=== PATIENT | female | born 1980 | race Caucasian/White ===

== ENCOUNTER 2016-12-21 19:45 | Emergency (ER) | payer OTHER ==
[2016-12-21 19:58] VITALS: BMI 26.6
[2016-12-21 21:35] LABS: URINE APPEARANCE CLEAR; URINE BILIRUBIN NEGATIVE (NEGATIVE); URINE BLOOD NEGATIVE (NEGATIVE); URINE COLOR LTYELLOW; URINE GLUCOSE (UA) NEGATIVE (NEGATIVE); URINE KETONE NEGATIVE (NEGATIVE); URINE NITRITE NEGATIVE (NEGATIVE); URINE PROTEIN NEGATIVE (NEGATIVE); URINE UROBILINOGEN NEGATIVE E.U./dl (0.2-1.0)
[2016-12-21 21:37] LABS: URINE LEUK ESTERASE 2+ (NEGATIVE)
[2016-12-21 21:38] LABS: URINE HYALINE CAST 2 /lpf; URINE MUCUS RARE; URINE RBC 3 /hpf (0-3); URINE WBC 13 /hpf (3-5)
[2016-12-21] MEDS ORDERED: ACETAMINOPHEN/CAFFEINE/BUTALBITAL 1 TAB PO ONE (22:15)
[2016-12-21] MEDS ORDERED: METOCLOPRAMIDE HCL 10 MG TABLET (FP) PO ONE ×2 (22:15→22:29)
--- NOTE | 2016-12-21 22:16 | PDOC ---
History of Present Illness - General History Source: Patient Exam Limitations: No Limitations - History of Present Illness Initial Comments: 12/21/16 22:32 The patient is a 36 year old female with a significant past medical history of migraines, cholecystectomy, asthma, left salpingectomy surgery s/p ectopic , who presents to the ER with gradually worsening left posterior headache and neck pain for three days. Patient states she feels associated lightheadedness with the headache, exacerbated while sitting up or while moving the body. She said she has difficulty rotating the head secondary to the neck pain. Patient reports taking Tylenol Extra Strength for the pain without relief of symptoms. She states she last took Tylenol 8 hours ago. Patient also reports drinking gatorade and pedialyte without relief of symptoms. Patient says her last episode of similar symptoms were 2 months ago and come every two months. She says her headaches are normally localized to the left side but were never accompanied with neck pain. She states she normally takes excedrin with relief, but did not take the medication for this episode. Patient admits she has associated nausea, left eye photophobia, left eye pain, and left ear pulsations. She admits that she ate chips a few moments ago and is able to hold down the food. Allergies: Penicillin Denies fever, chills, cough Denies vomiting Denies dysuria, hematuria Denies syncope <Rafaela Burkett - Last Filed: 12/21/16 23:10> - General History Source: Patient Exam Limitations: No Limitations <Delvis Perez - Last Filed: 12/22/16 00:43> - General Chief Complaint: Lightheaded Stated Complaint: NAUSEA/VOMITING Time Seen by Provider: 12/21/16 22:02 Past History <Rafaela Burkett - Last Filed: 12/21/16 23:10> - Past Medical History Asthma: Yes Kidney Stones: Yes Suicide Attempt (Hx): No - Reproductive History (#): 3 Para: 1 Cervical CA: No Dysfunctional Uterine Bleeding: No Ectopic : No Endometrial CA: No Polycystic Ovaries: No Therapeutic (s) & number: No Tubal Ligation: No Spontaneous : 1 - Immunization History Immunization Up to Date: Yes - Psycho/Social/Smoking Cessation Hx Anxiety: No Suicidal Ideation: No Smoking History: Former smoker Number of Cigarettes Smoked Daily: 3 If you are a former smoker, when did you quit?: 1 month ago Information on smoking cessation initiated: No Hx Alcohol Use: No Drug/Substance Use Hx: No Substance Use Type: None <Linda Perezel - Last Filed: 12/22/16 00:43> - Past Medical History Allergies/Adverse Reactions: Allergies Allergy/AdvReac Type Severity Reaction Status Date / Time Penicillins Allergy Severe Difficulty Verified 12/21/16 19:57 Breathing Home Medications: Ambulatory Orders Cyclobenzaprine HCl [Flexeril 10 mg] 10 mg PO Q8H PRN #21 tablet 12/22/16 Naproxen [Naprosyn -] 500 mg PO BID PRN #20 tablet 12/22/16 Review of Systems - Review of Systems Able to Perform ROS?: Yes Comments:: 12/21/16 22:32 GENERAL/CONSTITUTIONAL: No fever or chills. No weakness. HEAD, EYES, EARS, NOSE AND THROAT: (+) photophobia, (+) left ear discomfort, (+ ) left eye pain. No change in vision. No ear discharge. No sore throat. CARDIOVASCULAR: No chest pain or shortness of breath. RESPIRATORY: No cough, wheezing, or hemoptysis. GASTROINTESTINAL: (+) No vomiting, diarrhea or constipation. GENITOURINARY: No dysuria, frequency, or change in urination. MUSCULOSKELETAL: No joint or muscle swelling or pain. No neck or back pain. SKIN: No rash NEUROLOGIC: (+) headache, (+) lightheadedness. No vertigo, loss of consciousness , or change in strength/sensation. ENDOCRINE: No increased thirst. No abnormal weight change. HEMATOLOGIC/LYMPHATIC: No anemia, easy bleeding, or history of blood clots. ALLERGIC/IMMUNOLOGIC: No hives or skin allergy. <Rafaela Burkett - Last Filed: 12/21/16 23:10> *Physical Exam - Vital Signs Last Vital Signs Temp Pulse Resp BP Pulse Ox 98.1 F 76 18 119/74 100 12/21/16 19:57 12/21/16 19:57 12/21/16 19:57 12/21/16 19:57 12/21/16 19:57 - Physical Exam Comments: 12/21/16 22:34 GENERAL: Awake, alert, and fully oriented, in no acute distress HEAD: No signs of trauma EYES: PERRLA, EOMI, sclera anicteric, conjunctiva clear ENT: Auricles normal inspection, hearing grossly normal, nares patent, oropharynx clear without exudates. Moist mucosa NECK: Normal ROM, supple, no lymphadenopathy, JVD, or masses LUNGS: Breath sounds equal, clear to auscultation bilaterally. No wheezes, and no crackles HEART: Regular rate and rhythm, normal S1 and S2, no murmurs, rubs or gallops ABDOMEN: Soft, nontender, normoactive bowel sounds. No guarding, no rebound. No masses EXTREMITIES: Mild tenderness to palpation over left parietal scalp. Normal range of motion, no edema. No clubbing or cyanosis. No cords, erythema, or tenderness NEUROLOGICAL: Cranial nerves II through XII grossly intact. 5/5 strength upper and lower extremities. Sensation intact throughout. Normal speech, normal gait SKIN: Warm, Dry, normal turgor, no rashes or lesions noted. <LasRafaela - Last Filed: 12/21/16 23:10> - Vital Signs Last Vital Signs Temp Pulse Resp BP Pulse Ox 98.1 F 76 18 119/74 100 12/21/16 19:57 12/21/16 19:57 12/21/16 19:57 12/21/16 19:57 12/21/16 19:57 <Delvis Perez - Last Filed: 12/22/16 00:43> ED Treatment Course - ADDITIONAL ORDERS Additional order review: Laboratory Results 12/21/16 21:10 Urine Color Ltyellow Urine Appearance Clear Urine pH 5.0 D Urine Protein Negative Urine Glucose (UA) Negative Urine Ketones Negative Urine Blood Negative Urine Nitrite Negative Urine Bilirubin Negative Urine Urobilinogen Negative Ur Leukocyte Esterase 2+ H Urine RBC 3 Urine WBC 13 Ur Epithelial Cells Few Hyaline Casts 2 Urine Mucus Rare Urine HCG, Qual Negative <Las,Rafaela - Last Filed: 12/21/16 23:10> - ADDITIONAL ORDERS Additional order review: Laboratory Results 12/21/16 21:10 Urine Color Ltyellow Urine Appearance Clear Urine pH 5.0 D Urine Protein Negative Urine Glucose (UA) Negative Urine Ketones Negative Urine Blood Negative Urine Nitrite Negative Urine Bilirubin Negative Urine Urobilinogen Negative Ur Leukocyte Esterase 2+ H Urine RBC 3 Urine WBC 13 Ur Epithelial Cells Few Hyaline Casts 2 Urine Mucus Rare Urine HCG, Qual Negative <Delvis Perez - Last Filed: 12/22/16 00:43> Medical Decision Making - Medical Decision Making 12/21/16 22:26 A portion of this note was documented by scribe services under my direction. I have reviewed the details of the note, within reason, and agree with the documentation with the following case summary and management plan written by me. Patient treated in the ED. Nursing notes are reviewed and incorporated into the medical decision-making. Vital signs reviewed. Peripheral IV access obtained by the nurse, laboratory studies are drawn and sent, reviewed and interpreted by myself. Vital Signs Temp Pulse Resp BP Pulse Ox 98.1 F 76 18 119/74 100 12/21/16 19:57 12/21/16 19:57 12/21/16 19:57 12/21/16 19:57 12/21/16 19:57 36-year-old female with history of migraines, asthma presents with migraine headache for 3 days. Patient reports that is a pulsating left-sided headache with photophobia and phonophobia. States that she also feels lightheaded and has reproducible left-sided head ache. Denies fevers or chills. Denies neck stiffness. States that these headaches occur once every 2 months. Reports that the headaches are similar to her prior headaches. She typically takes Excedrin but did not take any for this headache. Instead took high-dose Tylenol which did not help. H&P appears consistent with migraine. Will treat with PO meds and reassess. Pt has 2+ leuk but 13 WBC. However, pt has no dysuria or suprapubic pain. Will hold off for now. 12/22/16 00:37 Urine Test Results Urine Color Ltyellow 12/21/16 21:10 Urine Appearance Clear 12/21/16 21:10 Urine pH 5.0 (5.0-8.0) D 12/21/16 21:10 Urine Protein Negative (NEGATIVE) 12/21/16 21:10 Urine Glucose (UA) Negative (NEGATIVE) 12/21/16 21:10 Urine Ketones Negative (NEGATIVE) 12/21/16 21:10 Urine Blood Negative (NEGATIVE) 12/21/16 21:10 Urine Nitrite Negative (NEGATIVE) 12/21/16 21:10 Urine Bilirubin Negative (NEGATIVE) 12/21/16 21:10 Ur Leukocyte Esterase 2+ (NEGATIVE) H 12/21/16 21:10 Urine RBC 3 /hpf (0-3) 12/21/16 21:10 Urine WBC 13 /hpf (3-5) 12/21/16 21:10 Ur Epithelial Cells Few /hpf (FEW) 12/21/16 21:10 Urine Mucus Rare 12/21/16 21:10 12/22/16 00:38 Urine test Patient reported minimal relief with Fioricet and Reglan. Patient reports that palpation of the side of the head worsens the pain. Perhaps is more muscle skeletal the migraines. Patient was given Toradol and Flexeril which significantly relieved the pain. We'll treat as muscle skeletal. We'll prescribe naproxen and Flexeril and have the patient follow with PMD. I discussed the physical exam findings, ancillary test results and final diagnoses with the patient. I answered all of the patient's questions. The patient was satisfied with the care received and felt comfortable with the discharge plan and treatment plan. The patient will call their primary care physician within 24 hours to arrange follow-up and will return to the Emergency Department with any new, persistant or worsening symptoms. <Delvis Perez - Last Filed: 12/22/16 00:43> *DC/Admit/Observation/Transfer - Attestations Scribe Attestion: 12/21/16 22:48 Documentation prepared by Rafaela Burkett, acting as medical registrar for Delvis Perez MD. <Rafaela Burkett - Last Filed: 12/21/16 23:10> - Discharge Dispostion Admit: No <Delvis Perez - Last Filed: 12/22/16 00:43> Diagnosis at time of Disposition: Headache Qualifiers: Headache type: unspecified Headache chronicity pattern: acute headache Intractability: not intractable Qualified Code(s): R51 - Headache - Discharge Dispostion Disposition: HOME Condition at time of disposition: Improved - Prescriptions Prescriptions: Cyclobenzaprine HCl [Flexeril 10 mg] 10 mg PO Q8H PRN #21 tablet PRN Reason: Muscle Relaxant Naproxen [Naprosyn -] 500 mg PO BID PRN #20 tablet PRN Reason: Headache - Referrals Referrals: Sohan Elkins MD [Primary Care Provider] - - Patient Instructions Printed Discharge Instructions: DI for Headache, DI for Musculoskeletal Pain Additional Instructions: Take 500 mg naproxen every 12 hours as needed for pain. Take 1 tablet of flexeril every 8 hours as needed for muscle relaxation. It may take several days before your symptoms improve. Follow up with your doctor.
[2016-12-21] MEDS ORDERED: ACETAMINOPHEN/CAFFEINE/BUTALBITAL 1 TAB ONE (22:29)
[2016-12-21] MEDS ORDERED: SODIUM CHLORIDE 1,000 ML IV STA (23:10)
[2016-12-21] MEDS ORDERED: CYCLOBENZAPRINE HCL 10 MG TABLET (FP) PO ONE (23:10)
[2016-12-21] MEDS ORDERED: KETOROLAC TROMETHAMINE 30 MG/1 ML VIAL IVPUSH ONE (23:10)
[2016-12-21] MEDS ORDERED: KETOROLAC TROMETHAMINE 30 MG/1 ML VIAL ONE (23:32)
[2016-12-21] MEDS ORDERED: CYCLOBENZAPRINE HCL 10 MG TABLET (FP) ONE (23:32)
[2016-12-22 00:57] VITALS: BP 130/82; PULSE 80; TEMP 97.9
== END 2016-12-22 00:59 | disposition home or self-care (01) ==
LOC: JER 19:45
PROC: 3E0333Z Introduction of Anti-inflammatory into Peripheral Vein, Percutaneous Approach (ICD-10-PCS; principal; 2016-12-21)
DX: R51 Headache (principal)
CPT/HCPCS: 81003; 81015; 84703; 87086; 96365; 99282-25

== ENCOUNTER 2017-03-27 20:42 | Emergency (ER) | payer OTHER ==
[2017-03-27 20:50] VITALS: BP 142/100; PULSE 100; TEMP 97; BMI 26.6
--- NOTE | 2017-03-27 21:46 | PDOC ---
History of Present Illness - General Chief Complaint: Injury Stated Complaint: TOE INJURY Time Seen by Provider: 03/27/17 21:18 History Source: Patient Exam Limitations: No Limitations - History of Present Illness Initial Comments: 03/27/17 22:01 My Chief complaint: Bedpost fell on her right large toe toe pain bleeding from nail History of present illness: Patient is a 36-year-old female with a history of biting deficiency anemia, renal calculi, here today complaining of pain to her right large toe after bedpost fell on it. Patient has bleeding from the proximal aspect of her toe around her nail bed. Patient denies any numbness of toe. Patient does not know of her last tetanus. Patient has not taken anything for pain. 03/27/17 22:04 03/27/17 22:35 Occurred: reports: just prior to arrival Severity: reports: moderate (right large toe) Pain Location: reports: lower extremity (rt. large toe ) Method of Injury: Yes: direct blow (by a bed post ) Modifying Factors: improves with: None Loss of Consciousness: no loss of consciousness Associated Symptoms (Fall): other (toenail partially avulsed proximally ) Past History - Past Medical History Allergies/Adverse Reactions: Allergies Allergy/AdvReac Type Severity Reaction Status Date / Time Penicillins Allergy Severe Difficulty Verified 03/27/17 20:50 Breathing Home Medications: Ambulatory Orders Ibuprofen [Motrin -] 600 mg PO Q6H PRN #20 tablet 03/27/17 Anemia: Yes (iron deficiency ) Asthma: Yes Kidney Stones: Yes Suicide Attempt (Hx): No Other medical history: gall stones - Reproductive History (#): 3 Para: 1 Cervical CA: No Dysfunctional Uterine Bleeding: No Ectopic : No Endometrial CA: No Polycystic Ovaries: No Therapeutic (s) & number: No Tubal Ligation: No Spontaneous : 1 - Immunization History Immunization Up to Date: Yes - Psycho/Social/Smoking Cessation Hx Anxiety: No Suicidal Ideation: No Smoking History: Former smoker Have you smoked in the past 12 months: Yes Number of Cigarettes Smoked Daily: 3 If you are a former smoker, when did you quit?: 1 month ago Information on smoking cessation initiated: No Hx Alcohol Use: No Drug/Substance Use Hx: No Substance Use Type: None Review of Systems - Review of Systems Able to Perform ROS?: Yes Constitutional: No: Symptoms Reported HEENTM: No: Symptoms Reported Respiratory: No: Symptoms reported Cardiac (ROS): No: Symptoms Reported ABD/GI: No: Symptoms Reported : No: Symptoms Reported Musculoskeletal: Yes: Joint Pain (rt. large toe ), Joint Swelling (rt. large toe proximallly ) Integumentary: Yes: Other (rt. large toenail proximally partial avulsed ) Neurological: No: Symptoms reported *Physical Exam - Vital Signs Last Vital Signs Temp Pulse Resp BP Pulse Ox 97 F L 100 H 20 142/100 99 03/27/17 20:44 03/27/17 20:44 03/27/17 20:44 03/27/17 20:44 03/27/17 20:44 Procedures - Consent Consent obtained: From Patient - Additional Procedures Progress: 03/27/17 22:35 Wound on right large toenail superficial of skin at nail bed toenail is thick is not a full stop however small amount of subungual hematoma noted (which most probably caused opening of the skin at eponchium). Nail examined thoroughly is not even. Area was cleansed with Betadine and normal saline copious amounts, dried and applied a tiny amount of bacitracin ointment, Telfa pad applied and cleaning. Hard sole shoe was given to patient Medical Decision Making - Medical Decision Making 03/27/17 22:04 Patient is a 36-year-old female with a history of biting deficiency anemia, renal calculi, here today complaining of pain to her right large toe after bedpost fell on it. Patient has bleeding from the proximal aspect of her toe around her nail bed. Patient denies any numbness of toe. Patient does not know of her last tetanus. Patient has not taken anything for pain. Right large toe r/o fracture Rt. large toenail partial avulsion PLAN: urine hcg negative xray rt. foot no fracture noted Ibuprofen 600 kg po given than q 6 hr prm pain TDAP 0.5 ml IM 03/27/17 22:38 Wound on right large toenail superficial of skin at nail bed toenail is thick is not a full stop however small amount of subungual hematoma noted (which most probably caused opening of the skin at eponchium). Nail examined thoroughly is not even. Area was cleansed with Betadine and normal saline copious amounts, dried and applied a tiny amount of bacitracin ointment, Telfa pad applied and cleaning. Hard sole shoe was given to patient *DC/Admit/Observation/Transfer Diagnosis at time of Disposition: Subungual hematoma of great toe of right foot Qualifiers: Encounter type: initial encounter Qualified Code(s): S90.211A - Contusion of right great toe with damage to nail, initial encounter Contusion of toe with damage to nail Qualifiers: Encounter type: initial encounter Toe: great toe Laterality: right Qualified Code(s): S90.211A - Contusion of right great toe with damage to nail, initial encounter - Discharge Dispostion Disposition: HOME Condition at time of disposition: Stable - Referrals Referrals: Sohan Elkins MD [Primary Care Provider] - Bethany Perdomo MD [Staff Physician] - - Patient Instructions Additional Instructions: CLEANSE a large toe with antibacterial soap and water pat dry and apply a tiny amount of bacitracin ointment apply Telfa pad applied AND ethan wear Hard sole shoe Follow-up with the diagnosis as soon as possible Return to emergency room if increased swelling or redness around wound or discharge from wound Your tetanus, diphtheria and pertussis vaccine was updated Patient voiced understanding of discharge instructions and all questions were answered
[2017-03-27] MEDS ORDERED: IBUPROFEN 600 MG TABLET (FP) PO ONE ×2 (22:00→22:15)
[2017-03-27] MEDS ORDERED: DIPHTH,PERTUSS(ACELL),TET 0.5 ML DISP.SYRIN IM ONE (22:03)
== END 2017-03-27 22:51 | disposition home or self-care (01) ==
LOC: JERFT 20:42
PROC: 3E0234Z Introduction of Serum, Toxoid and Vaccine into Muscle, Percutaneous Approach (ICD-10-PCS; principal; 2017-03-27)
DX: S90.211A Contusion of right great toe with damage to nail, initial encounter (principal); W20.8XXA Other cause of strike by thrown, projected or falling object, initial encounter; Y93.89 Activity, other specified; Y92.032 Bedroom in apartment as the place of occurrence of the external cause; D50.8 Other iron deficiency anemias; Z87.442 Personal history of urinary calculi
CPT/HCPCS: 73630-TC-RT; 84703; 90471; 90715; 99282-25

== ENCOUNTER 2017-07-20 09:05 | Emergency (ER) | payer OTHER ==
[2017-07-20 09:12] VITALS: TEMP 98.4; BMI 27.3
--- NOTE | 2017-07-20 09:37 | PDOC ---
History of Present Illness - General Chief Complaint: Vaginal Bleeding Stated Complaint: VAGINAL BLEEDING (4 WKS ) Time Seen by Provider: 07/20/17 09:28 History Source: Patient Exam Limitations: No Limitations - History of Present Illness Initial Comments: CHIEF COMPLAINT: 36 y/o afebrile female, M2 (1 ectopic ; left ovary removed), approximately 5 week female with LMP 06/10/17 c/o vaginal bleeding since last night. HISTORY OF PRESENT ILLNESS: The patient states the bleeding is light, as she does not even have to wear a maxi pad. She denies f/c, CHURCH, n/v/d, CP, SOB, abd pain, back pain, hematuria, dysuria, passage of clots. She does not currently have an [employer]. The patient does inform me that she had sexual intercourse last night and believes that is why she may be bleeding. Vital signs on arrival are notable for BP of 166/122. REVIEW OF SYSTEMS: GENERAL/CONSTITUTIONAL: No fever/chills. No weakness. No weight change. HEAD, EYES, EARS, NOSE AND THROAT: No change in vision. No ear pain or discharge. No sore throat. CARDIOVASCULAR: No chest pain or shortness of breath. RESPIRATORY: No cough, wheezing, or hemoptysis. GASTROINTESTINAL: See history of present illness. GENITOURINARY: No dysuria, frequency, or change in urination. +vaginal bleeding. MUSCULOSKELETAL: No joint or muscle swelling or pain. No neck or back pain. SKIN: No rash or easy bruising. NEUROLOGIC: No headache, vertigo, loss of consciousness, or loss of sensation. PHYSICAL EXAM: GENERAL: The patient is awake, alert, and fully oriented, in no acute distress. She is well appearing and ambulatory. HEAD: Normal with no signs of trauma. ENT: Pupils equal, round and reactive to light, extraocular movements intact, sclera anicteric, conjunctiva clear. Neck supple. LUNGS: Clear to auscultation bilaterally. Normal excursion. No respiratory distress or use of accessory muscles. CV: RRR, S1/S2, no MRG. Cap refill < 2 sec. ABDOMEN: Soft, non-distended, non-tender even to deep palpation, no hepatomegaly or splenomegaly, no masses. VAGINAL: Deferred EXTREMITIES: Normal range of motion, no edema. NEUROLOGICAL: Normal speech, normal gait. CN II-XII grossly intact. PSYCH: Normal mood, normal affect. SKIN: Warm, dry, normal turgor, no rashes or lesions noted. Past History - Past Medical History Allergies/Adverse Reactions: Allergies Allergy/AdvReac Type Severity Reaction Status Date / Time Penicillins Allergy Severe Difficulty Verified 07/20/17 09:09 Breathing Home Medications: Ambulatory Orders NK [No Known Home Medication] 07/20/17 Anemia: Yes (iron deficiency ) Asthma: Yes COPD: No Kidney Stones: Yes Other medical history: GALLSTONES - Reproductive History (#): 3 Para: 1 Cervical CA: No Dysfunctional Uterine Bleeding: No Ectopic : No Endometrial CA: No Polycystic Ovaries: No Therapeutic (s) & number: No Tubal Ligation: No Spontaneous : 1 - Immunization History Immunization Up to Date: Yes - Suicide/Smoking/Psychosocial Hx Smoking History: Former smoker Have you smoked in the past 12 months: Yes Number of Cigarettes Smoked Daily: 3 If you are a former smoker, when did you quit?: 1 month ago Information on smoking cessation initiated: No Hx Alcohol Use: No Drug/Substance Use Hx: No Substance Use Type: None *Physical Exam - Vital Signs Last Vital Signs Temp Pulse Resp BP Pulse Ox 98.4 F 90 18 166/122 100 07/20/17 09:10 07/20/17 09:10 07/20/17 09:10 07/20/17 09:10 07/20/17 09:10 ED Treatment Course - LABORATORY CBC & Chemistry Diagram: 07/20/17 10:00 07/20/17 10:00 Medical Decision Making - Medical Decision Making A/P: 36 y/o female, approximately 5 weeks with PMH ectopic , c/o vaginal bleeding after sexual intercourse last night. Plan is as follows: 1. UA/culture 2. Beta hcg 3. labs 4. transvaginal Ultrasound Transvaginal Ultrasound IMPRESSION: Single, live intrauterine of 6 weeks, 1 day with HR of 115bpm Blood type O+ therefore no need for rhogam. Patient given all of her results. Pt with high BP in the ER with 2 different reads. She has no protein in her urine. Concerned for HTN in . Discussed the issue with Dr. Rodriguez and he suggests prompt PMD and OB follow up. Provided the patient with referrals to both and suggested she f/u [facility]. Instructed her to return to the ER with any worsening or concerning symptoms. The patient verbalizes understanding of all instructions, has no further questions and is awaiting discharge. *DC/Admit/Observation/Transfer Diagnosis at time of Disposition: Vaginal bleeding affecting early Hypertension Qualifiers: Hypertension type: unspecified Qualified Code(s): I10 - Essential (primary) hypertension - Discharge Dispostion Disposition: HOME Condition at time of disposition: Good - Referrals Referrals: Harvey Lewis MD [Staff Physician] - Call tomorrow Jaimie Lopez MD [Staff Physician] - Call tomorrow - Patient Instructions Printed Discharge Instructions: DI for Vaginal Bleeding During Additional Instructions: Discharge Instructions: -Please follow up with Dr. Lewis and Dr. Lopez as soon as possible. -Return to the ER with any worsening or concerning symptoms. - Post Discharge Activity
[2017-07-20 10:25] LABS: BASO % 0.8 % (0-2.0); EOS % 2.1 % (0-4.5); HEMOGLOBIN 14.7 GM/dL (10.7-15.3); LYMPH % 19.2 % (8-40); MCH 29.4 pg (25.7-33.7); MCHC 32.7 g/dl (32.0-36.0); MEAN CELL VOLUME 90.1 fl (80-96); MEAN PLT VOLUME 8.1 fl (7.5-11.1); MONO % 5.1 % (3.8-10.2); NEUT % 72.8 % (42.8-82.8); PLATELET COUNT 267 K/MM3 (134-434); RDW 12.6 % (11.6-15.6); WHITE BLOOD COUNT 10.3 K/mm3 (4.0-10.0)
[2017-07-20 10:35] LABS: ALBUMIN 3.7 g/dl (3.4-5.0); ALK PHOS 73 U/L (45-117); ANION GAP 7 (8-16); BILIRUBIN,TOTAL 0.6 mg/dL (0.2-1.0); BLOOD UREA NITROGEN 10 mg/dL (7-18); CALCIUM 8.9 mg/dL (8.5-10.1); CHLORIDE 105 mmol/L (98-107); CO2 27 mmol/L (21-32); CREATININE 0.7 mg/dL (0.55-1.02); GLUCOSE,RANDOM 94 mg/dL (74-106); SGOT/AST 12 U/L (15-37); SGPT/ALT 21 U/L (12-78); SODIUM 139 mmol/L (136-145); TOT PROT 7.3 g/dl (6.4-8.2)
[2017-07-20 10:35] LABS: URINE APPEARANCE SLCLOUDY; URINE BILIRUBIN NEGATIVE (NEGATIVE); URINE BLOOD 2+ (NEGATIVE); URINE COLOR YELLOW; URINE GLUCOSE (UA) NEGATIVE (NEGATIVE); URINE KETONE TRACE (NEGATIVE); URINE LEUK ESTERASE TRACE (NEGATIVE); URINE NITRITE NEGATIVE (NEGATIVE); URINE PROTEIN NEGATIVE (NEGATIVE)
--- NOTE | 2017-07-20 11:09 | PDOC ---
*Physical Exam - Vital Signs Last Vital Signs Temp Pulse Resp BP Pulse Ox 98.4 F 90 18 166/122 100 07/20/17 09:10 07/20/17 09:10 07/20/17 09:10 07/20/17 09:10 07/20/17 09:10 ED Treatment Course - LABORATORY CBC & Chemistry Diagram: 07/20/17 10:00 07/20/17 10:00 - ADDITIONAL ORDERS Additional order review: Laboratory Results 07/20/17 07/20/17 10:25 10:00 Sodium 139 Potassium 4.0 Chloride 105 Carbon Dioxide 27 D Anion Gap 7 L BUN 10 Creatinine 0.7 Creat Clearance w eGFR > 60 Random Glucose 94 D Calcium 8.9 Total Bilirubin 0.6 D AST 12 L D ALT 21 Alkaline Phosphatase 73 Total Protein 7.3 Albumin 3.7 Urine Color Yellow Urine Appearance Slcloudy Urine pH 6.0 Ur Specific [place] 1.028 Urine Protein Negative Urine Glucose (UA) Negative Urine Ketones Trace H Urine Blood 2+ H Urine Nitrite Negative Urine Bilirubin Negative Urine Urobilinogen 2.0 H 07/20/17 10:00 RBC 5.00 MCV 90.1 MCHC 32.7 RDW 12.6 MPV 8.1 Neutrophils % 72.8 Lymphocytes % 19.2 Monocytes % 5.1 Eosinophils % 2.1 Basophils % 0.8 Medical Decision Making - Medical Decision Making 07/20/17 11:09 Patient seen and evaluated with the nurse practitioner. I agree with the overall evaluation, assessment, and management with the following summary of visit: 36-year-old female LMP about 5 weeks presents with vaginal bleeding. Rule out ectopic, possible threatened AB. Agree with workup including labs with Rh, hCG level, transvaginal ultrasound. *DC/Admit/Observation/Transfer Diagnosis at time of Disposition: Vaginal bleeding affecting early - Referrals - Patient Instructions - Post Discharge Activity
[2017-07-20 11:50] LABS: EPI CELLS FEW /HPF (FEW); URINE MUCUS FEW
[2017-07-20 13:58] VITALS: BP 156/113; PULSE 80
== END 2017-07-20 14:11 | disposition home or self-care (01) ==
LOC: JER 09:05
DX: O26.891 Other specified pregnancy related conditions, first trimester (principal); O20.8 Other hemorrhage in early pregnancy; O13.1 Gestational [pregnancy-induced] hypertension without significant proteinuria, first trimester; Z3A.01 Less than 8 weeks gestation of pregnancy
CPT/HCPCS: 36415; 76817-TC; 80053; 81003; 81015; 84702; 85025; 86850; 86900; 86901; 87086; 99282-25